=== PATIENT | male | born 1980 | race African-American/Black ===

== ENCOUNTER 2020-01-13 14:53 | Emergency (ER) | payer OTHER ==
[~2020-01-13] VITALS: Ht 182.9 cm; Wt 90.7 kg
[2020-01-13] MEDS ORDERED: SODIUM CHLORIDE 0.9% 1,000 ML IV ONE (15:01)
[2020-01-13] MEDS ORDERED: LORazepam 2MG/ML-1ML VIAL IV ONE (15:15)
[2020-01-13 15:24] LABS: Basophils # (auto) 0 uL; Basophils % (auto) 0.2 % (0.0-2.0); Eosinophils # (auto) 0.5 uL; Eosinophils % (auto) 10.5 % (0.0-7.0); Hemoglobin 13.4 g/dL (13.5-17.5); Lymphocytes # (auto) 1.7 uL; Lymphocytes % (auto) 33.1 % (10.0-50.0); Mean Corpuscular Hgb Conc. 33.5 g/dL (32.0-36.0); Mean Corpuscular Volume 92.7 fL (80.0-100.0); Monocytes # (auto) 0.6 uL; Monocytes % (auto) 11.4 % (0.0-12.0); Neutrophils # (auto) 2.3 uL; Neutrophils % (auto) 44.8 % (37.0-80.0); Nucleated Red Blood Cells % 0.1 %; Platelet Count (auto) 241 10^3/uL (140-450); Red Blood Cells 4.31 10^6/uL (4.5-5.90); Red Cell Distribution Width 13.5 % (11.8-14.3); White Blood Cell 5.1 10^3/uL (4.4-10.8)
[2020-01-13 15:38] LABS: Alanine Aminotransferase 63 U/L (16-61); Albumin 3.5 g/dL (3.4-5.0); Anion Gap 5 (5-15); Aspartate Aminotransferase 37 U/L (15-37); BUN/Creatinine Ratio 17.3; Blood Alcohol < 3.0 mg/dL (0-5); Blood Urea Nitrogen 14 mg/dL (7-18); Calcium 8.4 mg/dL (8.5-10.1); Carbon Dioxide 25 mmol/L (21-32); Chloride 108 mmol/L (98-107); GFR African American 136 mL/min; GFR Non-African American 112 mL/min; Glucose 104 mg/dL (74-106); Potassium 3.6 mmol/L (3.5-5.1); Sodium 138 mmol/L (136-145)
[2020-01-13 15:40] LABS: Alkaline Phosphatase 66 U/L (45-117); Bilirubin, Total 0.5 mg/dL (0.2-1.0)
[2020-01-13 17:36] LABS: Amphetamine Screen, Urine POSITIVE (NEGATIVE); Barbiturate Scree,Urine NEGATIVE (NEGATIVE); Benzodiazephine Screen, Urine NEGATIVE (NEGATIVE); Cannabinoid Screen, Urine POSITIVE (NEGATIVE); Cocaine Screen, Urine NEGATIVE (NEGATIVE); Phencyclidine Screen, Urine NEGATIVE (NEGATIVE)
[2020-01-13 17:43] LABS: Opiate Scree,Urine NEGATIVE (NEGATIVE)
[2020-01-13 19:00] VITALS: BP 120/55
== END 2020-01-13 21:00 | disposition home or self-care (01) ==
LOC: EDBD 14:53 → ER 15:00
DX: F15.10 Other stimulant abuse, uncomplicated (principal); F12.10 Cannabis abuse, uncomplicated; F14.10 Cocaine abuse, uncomplicated; F11.10 Opioid abuse, uncomplicated; F17.210 Nicotine dependence, cigarettes, uncomplicated
CPT/HCPCS: 36415; 80053; 80307; 80320; 85025; 93005; 96374; 99284; J2060; J7030